=== PATIENT | female | born 2000 ===

== ENCOUNTER 2022-02-13 13:24 | Emergency (ER) | payer OTHER, SELFPAY ==
[2022-02-13 13:46] VITALS: BP 115/73; PULSE 109; RESP 20; TEMP 36.9; O2SAT 100
--- NOTE | 2022-02-13 14:23 | PC.NURSE ---
Called for bed, pt not in waiting room or parking lot.
--- NOTE | 2022-02-13 14:41 | PC.NURSE ---
called pt's name twice. no answer.
== END 2022-02-13 14:59 | disposition left against medical advice (07) ==
LOC: ANHED 14:56
DX: O20.9 Hemorrhage in early pregnancy, unspecified (principal)
CPT/HCPCS: 99199

== ENCOUNTER 2022-05-19 04:53 | Outpatient (CLI) | payer OTHER, SELFPAY ==
[2022-05-19 05:14] VITALS: BP 108/57; PULSE 92
[2022-05-19 05:20] LABS: Appearance Urine Clear (Clear); Bilirubin Urine Negative (Negative); Blood Urine Negative (Negative); Color Urine Yellow (Yellow); Glucose Urine UA Negative (Negative); Ketones Urine Negative (Negative); Leukocyte Esterase Ur Trace LEU/UL (Negative); Nitrate Urine Negative (Negative); Protein Urine Negative (Negative)
[2022-05-19 05:23] VITALS: BMI 18.9
[2022-05-19 05:26] LABS: Amorphous Sediment Urine Few; Bacteria Urine Trace /hpf; RBC Urine 0-2 /hpf (0-2)
[2022-05-19] MEDS: CALCIUM CARBONATE (TUMS) 500 MG (200 MG ELEMENTAL) PO (05:30)
--- NOTE | 2022-05-19 05:45 | PC.NURSE ---
[address] BURRIS. PT STATES THAT SHE FEELS BETTER ONCE INCLINED IN THE BED. PT DENIES TENDERNESS UPON PALPATION. FHTs IN THE 150s. PT DENIES REMARKABLE MEDICAL HISTORY. UA SENT. DISCHARGE ORDERS RECEIVED.
[2022-05-19 06:46] LABS: Mucus Urine Rare /lpf; Squamous Epithelial Cell Urine Occasional /hpf (Few)
[2022-05-19 06:50] LABS: Add Urine Microscopic? YES
== END 2022-05-19 05:30 | disposition home or self-care (01) ==
LOC: ANHOBOP 04:56 → ANHOBPP 05-24 06:24
PROVIDERS: Visit Provider Obstetrics & Gynecology
DX: R10.9 Unspecified abdominal pain (principal)
CPT/HCPCS: 81001; 99199; A9270